=== PATIENT | male | born 1990 | race Caucasian/White ===

== ENCOUNTER 2018-12-19 15:37 | Emergency (ER) | payer SELFPAY ==
[~2018-12-19] VITALS: Ht 180.3 cm; Wt 68.0 kg
[~2018-12-19 15:37] MED LIST: DM/P295L17
[2018-12-19 20:31] VITALS: BP 124/82
== END 2018-12-19 16:44 | disposition left against medical advice (07) ==
LOC: ER 15:37
DX: R11.10 Vomiting, unspecified (principal); Z53.21 Procedure and treatment not carried out due to patient leaving prior to being seen by health care provider

== ENCOUNTER 2018-12-20 09:30 | Emergency (ER) | payer SELFPAY ==
[~2018-12-20] VITALS: Ht 180.3 cm; Wt 68.0 kg
[2018-12-20] MEDS ORDERED: ONDANSETRON HCL 4MG/2ML INJ IV STA (10:53)
[2018-12-20] MEDS ORDERED: SODIUM CHLORIDE 0.9% 1,000 ML IV ONE (10:53)
[2018-12-20] MEDS ORDERED: MAGNESIUM/ALUMINUM HYDROXIDE/SIMETHICONE 30ML UDC PO STA (10:53)
[2018-12-20 11:06] LABS: BASOPHILS % 0.4 % (0.0-2.0); EOSINOPHILS % 2.3 % (0.0-5.0); HEMATOCRIT. 45.6 % (42.0-52.0); HEMOGLOBIN. 15.8 g/dL (14.0-18.0); LYMPHOCYTES % 24.8 % (20.0-50.0); MEAN CORPUSCULAR HEMOGLOBIN 30.1 pg (28.0-32.0); MEAN CORPUSCULAR VOLUME 86.6 fL (80.0-94.0); MEAN PLATELET VOLUME 8.3 fl (7.4-10.4); MONOCYTES % 5.4 % (2.0-8.0); NEUTROPHILS % 67.1 % (40.0-76.0); PLATELET 280 x1000/uL (130-400); RED BLOOD CELL COUNT 5.27 mill/uL (4.7-6.1); RED CELL DISTRIBUTION WIDTH 13.1 % (11.6-14.6)
[2018-12-20 11:11] LABS: CHLORIDE 106 mEq/L (98-107)
[2018-12-20 12:11] VITALS: BP 119/70
== END 2018-12-20 12:14 | disposition home or self-care (01) ==
LOC: ER 09:39
DX: R11.2 Nausea with vomiting, unspecified (principal); R03.0 Elevated blood-pressure reading, without diagnosis of hypertension; F17.210 Nicotine dependence, cigarettes, uncomplicated; Z71.6 Tobacco abuse counseling
CPT/HCPCS: 36415; 80053; 83690; 85025; 96361; 96374; 99283; 99406; J2405; J7030; Z7610